=== PATIENT | female | born 1980 | race Caucasian/White ===

== ENCOUNTER 2020-11-06 11:19 | Emergency (ER) | payer OTHER ==
[~2020-11-06] VITALS: Ht 167.6 cm; Wt 151.0 kg
[2020-11-06] MEDS ORDERED: METOCLOPRAMIDE INJ 10MG/2ML VIAL (J2765 PER 1) IV ONE (12:25)
[2020-11-06] MEDS ORDERED: ACETAMINOPHEN 500 MG TAB PO ONE (12:25)
[2020-11-06] MEDS ORDERED: diphenhydrAMINE 50MG/ML VIAL (J1200) IV ONE (12:25)
[2020-11-06 12:47] LABS: BASO # 0.1 10^3/uL (0.0-0.2); BASO % 1.1 % (0.0-1.0); EOS # 0.1 10^3/uL (0.0-0.5); EOS % 1.1 % (0.0-3.0); HEMATOCRIT 44.7 % (36.0-47.0); LYMPH # 2.6 10^3/uL (1.5-5.0); LYMPH % 28.3 % (24.0-44.0); MEAN CORPUSCULAR HEMOGLOBIN 25.9 pg (27.0-33.0); MEAN CORPUSCULAR HGB CONC 31.3 g/dl (32.0-36.5); MEAN CORPUSCULAR VOLUME 82.6 fl (80.0-96.0); MONO # 0.7 10^3/uL (0.0-0.8); MONO % 7.3 % (2.0-8.0); NEUTROPHILS # 5.7 10^3/uL (1.5-8.5); PLATELET COUNT, AUTOMATED 399 10^3/uL (150-450); RED BLOOD COUNT 5.41 10^6/uL (4.00-5.40); WHITE BLOOD COUNT 9.1 10^3/uL (4.0-10.0)
[2020-11-06] MEDS ORDERED: KETOROLAC 30 MG/ML 1ML VIAL As Ordered ONE (12:52)
[2020-11-06] MEDS ORDERED: NS 1,000 ML IV ONE (12:55)
[2020-11-06] MEDS ORDERED: KETOROLAC 30 MG/ML 1ML VIAL IV ONE (12:55)
[2020-11-06 13:12] LABS: ERYTHROCYTE SEDIMENTATION RATE 18 mm/hr (0-20)
--- NOTE | 2020-11-06 13:36 | REP ---
INDICATION: headache/migraine. COMPARISON: None. TECHNIQUE: Helical scanning is acquired. 5 mm axial images were reformatted. Coronal MPR images were generated. FINDINGS: Bone window settings demonstrate an intact bony calvarium. There is no evidence of skull fracture or incidental bony calvarial lesion. The visualized paranasal sinuses appear clear. No intraorbital abnormality is seen. On soft tissue window setting images; the lateral, third, and fourth ventricles are normal in size and position. Noel-white differentiation pattern is normal above and below the tentorium. There are is no evidence of intracranial hemorrhage. No mass, edema, infarction, or midline shift is seen. No extra-axial fluid collection is appreciated. IMPRESSION: Negative noncontrast head CT. <Electronically signed by Riley Betts > 11/06/20 [id number]
[2020-11-06 14:18] VITALS: BP 137/82
== END 2020-11-06 14:31 | disposition home or self-care (01) ==
LOC: M ED 11:19
DX: G43.909 Migraine, unspecified, not intractable, without status migrainosus (principal); E66.9 Obesity, unspecified
CPT/HCPCS: 70450; 80047; 84702; 85025; 85652; 86140; 96374; 96375; 99284; J1200; J1885; J2765